=== PATIENT | female | born 1995 | race Caucasian/White ===

== ENCOUNTER 2017-11-28 22:17 | Emergency (ER) | payer BC ==
--- NOTE | 2017-11-28 23:29 | EDPHYS ---
Physician Documentation [facility] Name: Christina Kennedy Age: 22 yrs Sex: Female : 1995 Arrival Date: 11/28/2017 Time: 22:18 Bed 14 Private MD: ED Physician Dallin Zamora HPI: 11/29 00:40 This 22 yrs old Female presents to ER via Ambulatory with complaints of Cat snw Bite. 00:40 The patient was bitten on the palmar aspect of left forearm, by a cat, pt was petting a snw neighborhood cat and her roommate's cat became jealous and bit pt's arm. Onset: The symptoms/episode began/occurred suddenly, yesterday. Animal information: The animal was reported to appear healthy. Animal's vaccinations are up to date. The animal is known and can be quarantined. Secondary to the bite the patient reports multiple puncture wounds, that are deep. Associated signs and symptoms: Pertinent positives: erythema at site, swelling at site. Severity of symptoms: At their worst the symptoms were moderate. The patient has not experienced similar symptoms in the past. The patient has not recently seen a physician. INCLUSION SPECIALIST: 11/28 22:35 LMP 11/16/2017 bs1 Historical: - Allergies: 22:35 PENICILLINS; bs1 - Home Meds: 22:35 Zoloft Oral [Active]; Klonopin Oral [Active]; bs1 - PMHx: 22:35 Anxiety; Depression; syncope; bs1 - PSHx: 22:35 Tonsillectomy; teeth extraction; bs1 - Immunization history:: Adult Immunizations up to date. - Social history:: Smoking status: Patient/guardian denies using tobacco. ROS: 11/29 00:40 Constitutional: Negative for fever, chills, and weight loss, Eyes: Negative for injury, snw pain, redness, and discharge, ENT: Negative for injury, pain, and discharge, Neck: Negative for injury, pain, and swelling, Cardiovascular: Negative for chest pain, palpitations, and edema, Respiratory: Negative for shortness of breath, cough, wheezing, and pleuritic chest pain, Abdomen/GI: Negative for abdominal pain, nausea, vomiting, diarrhea, and constipation, Back: Negative for injury and pain, : Negative for injury, bleeding, discharge, and swelling, Skin: Negative for injury, rash, and discoloration, Neuro: Negative for headache, weakness, numbness, tingling, and seizure. MS/extremity: Positive for injury or acute deformity, bite, erythema, swelling, tenderness, warmth, of the palmar aspect of left forearm. Exam: 00:38 Constitutional: This is a well developed, well nourished patient who is awake, alert, snw and in no acute distress. Head/Face: Normocephalic, atraumatic. Eyes: Pupils equal round and reactive to light, extra-ocular motions intact. Lids and lashes normal. Conjunctiva and sclera are non-icteric and not injected. Cornea within normal limits. Periorbital areas with no swelling, redness, or edema. ENT: Nares patent. No nasal discharge, no septal abnormalities noted. Tympanic membranes are normal and external auditory canals are clear. Oropharynx with no redness, swelling, or masses, exudates, or evidence of obstruction, uvula midline. Mucous membranes moist. Neck: Trachea midline, no thyromegaly or masses palpated, and no cervical lymphadenopathy. Supple, full range of motion without nuchal rigidity, or vertebral point tenderness. No Meningismus. Chest/axilla: Normal chest wall appearance and motion. Nontender with no deformity. No lesions are appreciated. Cardiovascular: Regular rate and rhythm with a normal S1 and S2. No gallops, murmurs, or rubs. Normal PMI, no JVD. No pulse deficits. Respiratory: Lungs have equal breath sounds bilaterally, clear to auscultation and percussion. No rales, rhonchi or wheezes noted. No increased work of breathing, no retractions or nasal flaring. Abdomen/GI: Soft, non-tender, with normal bowel sounds. No distension or tympany. No guarding or rebound. No evidence of tenderness throughout. Back: No spinal tenderness. No costovertebral tenderness. Full range of motion. MS/ Extremity: Pulses equal, no cyanosis. Neurovascular intact. Full, normal range of motion. Neuro: Awake and alert, GCS 15, oriented to person, place, time, and situation. Cranial nerves II-XII grossly intact. Motor strength 5/5 in all extremities. Sensory grossly intact. Cerebellar exam normal. Normal gait. Psych: Awake, alert, with orientation to person, place and time. Behavior, mood, and affect are within normal limits. 00:38 Skin: Appearance: normal except for affected area, cellulitis, that is mild, that is moderate, well demarcated, on the palmar aspect of left forearm, injury, bite(s), deep, of the palmar aspect of left forearm, per roommate's cat, area erythematous with puncture wounds that are mildly weeping. Vital Signs: 11/28 22:35 BP 157 / 111; Pulse 74; Resp 17; Temp 98.3(O); Pulse Ox 97% on R/A; Weight 111.13 kg; bs1 Height 5 ft. 4 in. (162.56 cm); Pain 5/10; 23:16 BP 121 / 65; Pulse 80; Pulse Ox 99% on R/A; bs1 11/29 00:15 BP 132 / 50; Pulse 76; Resp 15; Pulse Ox 99% on R/A; Pain 0/10; bs1 11/28 22:35 Body Mass Index 42.05 (111.13 kg, 162.56 cm) bs1 MDM: 11/28 23:10 Patient medically screened. snw 11/28 23:30 Order name: Wound dressing; Complete Time: 00:01 snw 11/28 23:30 Order name: Wound Care; Complete Time: 00:01 snw Administered Medications: 11/29 00:02 Drug: Doxycycline 100 mg Route: PO; bs1 00:36 Follow up: Response: No adverse reaction bs1 00:02 Drug: Tetanus-Diphtheria Toxoid Adult 0.5 ml {[employer] Analyst: [employer]. Exp: bs1 01/04/2020. Lot #: [id number]. } Route: IM; Site: right deltoid; 00:36 Follow up: Response: No adverse reaction bs1 00:02 Drug: TORadol 60 mg Route: IM; Site: left deltoid; bs1 00:36 Follow up: Response: No adverse reaction bs1 00:02 Drug: Flagyl 500 mg Route: PO; bs1 00:36 Follow up: Response: No adverse reaction bs1 Disposition: 04:27 Co-signature as Attending Physician, Dallin Zamora MD. rn Disposition: 11/28/17 23:28 Discharged to Home. Impression: Bitten by cat, Cellulitis of left upper limb. - Condition is Stable. - Discharge Instructions: Cellulitis, VIS, Tetanus, Diphtheria (Td) - [facility], Animal Bite. - Prescriptions for Flagyl 500 mg Oral Tablet - take 1 tablet by ORAL route every 8 hours for 10 days; 30 tablet. Doxycycline Hyclate 100 mg Oral Tablet - take 1 tablet by ORAL route every 12 hours; 20 tablet. Diclofenac Sodium 75 mg Oral Tablet Sustained Release - take 1 tablet by ORAL route 2 times per day; 30 tablet. - Work release form, Medication Reconciliation Form, Thank You Letter, Antibiotic Education, Prescription Opioid Use form. - Follow up: Private Physician; When: 2 - 3 days; Reason: Recheck today's complaints, Continuance of care, Re-evaluation by your physician. Follow up: Emergency Department; When: As needed; Reason: Worsening of condition. Signatures: Violet Valverde, APPLICATION DEFENSE MANAGER-C APPLICATION DEFENSE MANAGER-Csnw Dallin Zamora MD MD rn Perla Carreno RN RN bs1
--- NOTE | 2017-11-28 23:29 | ER ---
Nurse's Notes [facility] Name: Christina Kennedy Age: 22 yrs Sex: Female : 1995 Arrival Date: 11/28/2017 Time: 22:18 Bed 14 Private MD: Diagnosis: Bitten by cat;Cellulitis of left upper limb Presentation: 11/28 22:32 Presenting complaint: Patient states: "I got bit/scratched by my room mates cat last bs1 night around 11pm and its just gotten more red and swollen.". Transition of care: patient was not received from another setting of care. Onset of symptoms was November 27, 2017 at 23:00. Care prior to arrival: None. 22:32 Method Of Arrival: Ambulatory bs1 22:32 Acuity: OLIVER 4 bs1 Triage Assessment: 22:41 Bite description: bite sustained to left forearm by a cat, animal information: bs1 vaccination(s) is current. General: Appears in no apparent distress. uncomfortable. GRAPPLER: 22:35 LMP 11/16/2017 bs1 Historical: - Allergies: 22:35 PENICILLINS; bs1 - Home Meds: 22:35 Zoloft Oral [Active]; Klonopin Oral [Active]; bs1 - PMHx: 22:35 Anxiety; Depression; syncope; bs1 - PSHx: 22:35 Tonsillectomy; teeth extraction; bs1 - Immunization history:: Adult Immunizations up to date. - Social history:: Smoking status: Patient/guardian denies using tobacco. Screenin:36 Abuse screen: Denies threats or abuse. Denies injuries from another. Nutritional bs1 screening: No deficits noted. Tuberculosis screening: No symptoms or risk factors identified. Fall Risk None identified. Assessment: 22:36 General: Appears in no apparent distress. uncomfortable, Behavior is calm, cooperative, bs1 appropriate for age. Pain: Complains of pain in left forearm Pain does not radiate. Pain currently is 5 out of 10 on a pain scale. Quality of pain is described as aching. Neuro: Level of Consciousness is awake, alert, obeys commands, Oriented to person, place, time, situation, Appropriate for age Technical Staff Assistant are equal bilaterally Moves all extremities. Gait is steady, Speech is normal, Facial symmetry appears normal. Cardiovascular: Denies chest pain, lightheadedness, palpitations, shortness of breath, Heart tones S1 S2 present Capillary refill < 3 seconds Patient's skin is warm and dry. Respiratory: Airway is patent Trachea midline Respiratory effort is even, unlabored, Respiratory pattern is regular, symmetrical, Breath sounds are clear bilaterally. Respiratory: Denies shortness of breath. GI: No deficits noted. No signs and/or symptoms were reported involving the gastrointestinal system. : No deficits noted. No signs and/or symptoms were reported regarding the genitourinary system. EENT: No deficits noted. No signs and/or symptoms were reported regarding the EENT system. Derm: Skin multiple bite schneider noted to left forearm, red and swollen Skin is red, top of forearm , long scratch ernie noted. Musculoskeletal: Circulation, motion, and sensation intact. Capillary refill < 3 seconds, Range of motion: intact in all extremities, Swelling present in left forearm. Injury Description: multiple cat scratches noted to left forearm , surrounding area red, swollen, tender to the touch. 23:15 Reassessment: Patient appears in no apparent distress at this time. No changes from bs1 previously documented assessment. Patient and/or family updated on plan of care and expected duration. Pain level reassessed. Patient is alert, oriented x 3, equal unlabored respirations, skin warm/dry/pink. 11/29 00:01 Reassessment: Cleansed patient left arm w/ NS and chlorahexidine. Tolerated well. bs1 Vital Signs: 11/28 22:35 BP 157 / 111; Pulse 74; Resp 17; Temp 98.3(O); Pulse Ox 97% on R/A; Weight 111.13 kg; bs1 Height 5 ft. 4 in. (162.56 cm); Pain 5/10; 23:16 BP 121 / 65; Pulse 80; Pulse Ox 99% on R/A; bs1 11/29 00:15 BP 132 / 50; Pulse 76; Resp 15; Pulse Ox 99% on R/A; Pain 0/10; bs1 11/28 22:35 Body Mass Index 42.05 (111.13 kg, 162.56 cm) bs1 ED Course: 11/28 22:18 Patient arrived in ED. am2 22:25 Perla Carreno, RN is Primary Nurse. bs1 22:33 Triage completed. bs1 22:40 Arm band placed on placed. bs1 22:40 Patient has correct armband on for positive identification. Bed in low position. Call bs1 light in reach. Side rails up X 1. Pulse ox on. NIBP on. 22:40 No provider procedures requiring assistance completed. bs1 22:44 Violet Valverde FNP-C is [facility]. snw 22:44 Dallin Zamora MD is Attending Physician. snw 04 00:20 Patient did not have IV access during this emergency room visit. bs1 Administered Medications: 00:02 Drug: Doxycycline 100 mg Route: PO; bs1 00:36 Follow up: Response: No adverse reaction bs1 00:02 Drug: Tetanus-Diphtheria Toxoid Adult 0.5 ml {Documentation Lead: [employer]. Exp: bs1 01/04/2020. Lot #: [id number]. } Route: IM; Site: right deltoid; 00:36 Follow up: Response: No adverse reaction bs1 00:02 Drug: TORadol 60 mg Route: IM; Site: left deltoid; bs1 00:36 Follow up: Response: No adverse reaction bs1 00:02 Drug: Flagyl 500 mg Route: PO; bs1 00:36 Follow up: Response: No adverse reaction bs1 Outcome: 11/28 23:28 Discharge ordered by . snw 11/29 00:37 Discharged to home ambulatory. bs1 Condition: stable Discharge instructions given to patient, Instructed on discharge instructions, follow up and referral plans. medication usage, Demonstrated understanding of instructions, follow-up care, medications, wound care, Prescriptions given X 3. 00:38 Patient left the ED. bs1 Signatures: Violet Valverde FNP-C FNP-Jeannette Herrera amPerla Ferreira RN RN bs1 Corrections: (The following items were deleted from the chart) 11/28 22:43 22:32 Presenting complaint: Patient states: "I got bit by my room mates cat last night bs1 around 11pm and its just gotten more red and swollen." bs1 22:45 22:36 Derm: Skin multiple scratches noted to left forearm, red and swollen Skin is red, bs1 bs1
[2017-11-29] MEDS ORDERED: metroNIDAZOLE 500 MG TABLET ONE (00:13)
[2017-11-29] MEDS ORDERED: KETOROLAC 30 MG/ML INJ ONE (00:13)
[2017-11-29] MEDS ORDERED: TETANUS & DIPHTHERIA TOX,ADULT 0.5 ML VIAL ONE (00:14)
[2017-11-29] MEDS ORDERED: DOXYCYCLINE 100 MG CAP PO ONE (00:14)
== END 2017-11-29 00:38 | disposition home or self-care (01) ==
LOC: ER 22:17
DX: L03.114 Cellulitis of left upper limb (principal); W55.01XA Bitten by cat, initial encounter; Y93.89 Activity, other specified; Y92.89 Other specified places as the place of occurrence of the external cause; Z23 Encounter for immunization; Z88.0 Allergy status to penicillin; F41.9 Anxiety disorder, unspecified; F32.9 Major depressive disorder, single episode, unspecified
CPT/HCPCS: 90714; 96372; 99283